=== PATIENT | female | born 1945 | race Caucasian/White ===

== ENCOUNTER → 2020-10-04 15:59 | Outpatient (CLI) | payer MEDICARE, OTHER, SELFPAY | PROVIDERS: PCP Physician Assistant; Visit Provider Physician Assistant | DX: R30.0 Dysuria (principal) | CPT/HCPCS: 87086 ==

== ENCOUNTER → 2020-10-21 08:29 | Outpatient (CLI) | payer MEDICARE, OTHER, SELFPAY ==
[2020-10-21 19:56] LABS: Alanine Aminotransferase 25 IU/L (<35); Albumin 4.2 g/dL (3.5-5.0); Albumin Globulin Ratio 1.5 (1.0-2.8); Alkaline Phosphatase 50 U/L (38-126); Aspartate Aminotransferase 34 IU/L (14-36); BUN Creatinine Ratio 16.9 (6-22); Bilirubin Total 0.6 mg/dL (0.2-1.3); Blood Urea Nitrogen 12 mg/dL (7-17); Calcium 10.1 mg/dL (8.4-10.2); Carbon Dioxide 29 mmol/L (22-32); Chloride 99 mmol/L (98-107); Cholesterol 253 mg/dL (140-199); Estimated Glomerular Filt Rate > 60.0 mL/min (>60); Globulin 2.8 g/dL (1.7-4.1); Glucose 106 mg/dL (80-110); HDL Cholesterol 91 mg/dL (40-60); HEMOLYSIS < 15 (0-50); LDL Cholesterol Calculated 146 mg/dL (<100); Potassium 4.2 mmol/L (3.4-5.1); Sodium 134 mmol/L (137-145); Triglycerides 82 mg/dL (35-150)
[2020-10-21 20:01] LABS: Hemoglobin A1C% w Est Avg Glu 5.2 % (4.0-6.0)
== END ==
PROVIDERS: PCP Physician Assistant; Visit Provider Physician Assistant
DX: E78.00 Pure hypercholesterolemia, unspecified (principal); R73.9 Hyperglycemia, unspecified
CPT/HCPCS: 80053; 80061; 83036

== ENCOUNTER → 2021-04-06 16:30 | Outpatient (CLI) | payer MEDICARE, OTHER, SELFPAY ==
--- NOTE | 2021-04-06 16:31 | DI.MG.S_ITS ---
BILATERAL DIGITAL SCREENING MAMMOGRAM 3D/2D WITH CAD: 04/06/2021 CLINICAL: Routine screening. Comparison is made to exams dated: 01/17/2017 mammogram, 01/17/2016 mammogram, 10/11/2014 mammogram - [facility], and 10/10/2011 mammogram - [facility]. There are scattered fibroglandular elements in both breasts. Current study was also evaluated with a Computer Aided Detection (CAD) system. There are benign vascular calcifications in both breasts. No significant masses, calcifications, or other findings are seen in either breast. There has been no significant interval change. IMPRESSION: BENIGN There is no mammographic evidence of malignancy. A 1 year screening mammogram is recommended. This exam was interpreted at Station ID: [id number]. NOTE: For mammograms, a report in lay terms will be sent to the patient. Approximately 15% of breast malignancies will not be visualized mammographically. In the management of a palpable breast mass, a negative mammogram must not discourage biopsy of a clinically suspicious lesion. Electronically Signed By: Garth cardona/gypsy:04/06/2021 17:09:43 letter sent: Normal Exam ACR BI-RADS Category 2: Benign Finding(s) 3342F
== END ==
PROVIDERS: PCP Physician Assistant; Referring Provider Physician Assistant; Visit Provider Physician Assistant
DX: Z12.31 Encounter for screening mammogram for malignant neoplasm of breast (principal)
CPT/HCPCS: 77063; 77067

== ENCOUNTER → 2021-11-01 09:03 | Outpatient (CLI) | payer MEDICARE, OTHER, SELFPAY ==
[2021-11-01 19:26] LABS: Alanine Aminotransferase 24 IU/L (<35); Albumin 4.5 g/dL (3.5-5.0); Albumin Globulin Ratio 1.5 (1.0-2.8); Alkaline Phosphatase 58 U/L (38-126); Aspartate Aminotransferase 67 IU/L (14-36); BUN Creatinine Ratio 22.7 (6-22); Bilirubin Total 0.7 mg/dL (0.2-1.3); Blood Urea Nitrogen 17 mg/dL (7-17); Calcium 9.6 mg/dL (8.4-10.2); Carbon Dioxide 31 mmol/L (22-32); Chloride 98 mmol/L (98-107); Cholesterol 264 mg/dL (140-199); Estimated Glomerular Filt Rate > 60 mL/min (>60); Globulin 3.1 g/dL (1.7-4.1); Glucose 93 mg/dL (80-110); HDL Cholesterol 101 mg/dL (40-60); HEMOLYSIS 16 (0-50); LDL Cholesterol Calculated 150 mg/dL (<100); Sodium 134 mmol/L (137-145); Total Protein 7.6 g/dL (6.3-8.2); Triglycerides 66 mg/dL (35-150)
== END ==
PROVIDERS: PCP Physician Assistant; Visit Provider Physician Assistant
DX: E78.00 Pure hypercholesterolemia, unspecified (principal); R73.9 Hyperglycemia, unspecified
CPT/HCPCS: 80053; 80061

== ENCOUNTER → 2022-03-12 09:29 | Outpatient (CLI) | payer MEDICARE, OTHER, SELFPAY ==
[2022-03-12 19:14] LABS: Add Manual Diff / Slide Review NO; Basophils Absolute Auto 0 /uL (0-100); Basophils Percent Auto 0.5 % (0-2); Eosinophils Absolute Auto 200 /uL (0-450); Eosinophils Percent Auto 2.8 % (2-4); Hematocrit 37.6 % (36-46); Hemoglobin 13.1 g/dL (12.0-16.0); Lymphocytes Absolute Auto 1800 /uL (1100-4500); Lymphocytes Percent Auto 31.5 % (25-40); Mean Corpuscular HGB Conc 34.7 % (30-36); Mean Corpuscular Hemoglobin 31.3 PG (26-34); Mean Corpuscular Volume 90.1 fL (80-100); Monocytes Absolute Auto 400 /uL (0-900); Monocytes Percent Auto 6.4 % (3-14); Neutrophils Absolute Auto 3300 /uL (1500-7000); Neutrophils Percent Auto 58.8 % (50-75); Platelet Count 260 X10^3/uL (150-400); Red Blood Cell Count 4.18 X10^6/uL (4.0-5.2); Red Cell Distribution Width 12.3 % (11.6-14.8); White Blood Cell Count 5.7 X10^3/uL (4.5-11.0)
[2022-03-12 20:04] LABS: Alanine Aminotransferase 27 IU/L (<35); Albumin 4.4 g/dL (3.5-5.0); Albumin Globulin Ratio 1.4 (1.0-2.8); Alkaline Phosphatase 60 U/L (38-126); Aspartate Aminotransferase 35 IU/L (14-36); BUN Creatinine Ratio 17.6 (6-22); Bilirubin Total 0.8 mg/dL (0.2-1.3); Blood Urea Nitrogen 13 mg/dL (7-17); Calcium 9.4 mg/dL (8.4-10.2); Carbon Dioxide 29 mmol/L (22-32); Chloride 95 mmol/L (98-107); Cholesterol 225 mg/dL (140-199); Estimated Glomerular Filt Rate > 60 mL/min (>60); Globulin 3.1 g/dL (1.7-4.1); Glucose 101 mg/dL (80-110); HDL Cholesterol 82 mg/dL (40-60); HEMOLYSIS < 15 (0-50); LDL Cholesterol Calculated 124 mg/dL (<100); Potassium 4.1 mmol/L (3.4-5.1); Sodium 132 mmol/L (137-145); Total Protein 7.5 g/dL (6.3-8.2); Triglycerides 93 mg/dL (35-150)
[2022-03-12 20:29] LABS: Hep C Virus Ab w/Reflex Quant NEGATIVE s/c (NEGATIVE)
== END ==
PROVIDERS: PCP Physician Assistant; Visit Provider Physician Assistant
DX: E78.00 Pure hypercholesterolemia, unspecified (principal); R30.0 Dysuria; Z79.899 Other long term (current) drug therapy; Z11.59 Encounter for screening for other viral diseases
CPT/HCPCS: 80053; 80061; 85025; 86803

== ENCOUNTER → 2022-06-20 11:35 | Outpatient (CLI) | payer MEDICARE, OTHER, SELFPAY ==
--- NOTE | 2022-06-20 | DI.MG.S_ITS ---
BILATERAL DIGITAL SCREENING MAMMOGRAM 3D/2D WITH CAD: 06/20/2022 CLINICAL: Routine screening. Comparison is made to exams dated: 04/06/2021 mammogram - [facility], 01/17/2017 mammogram, 01/17/2016 mammogram, and 10/11/2014 mammogram - [facility]. There are scattered areas of fibroglandular density in both breasts (category b / 25%-50% glandular tissue). Current study was also evaluated with a Computer Aided Detection (CAD) system. There are benign vascular calcifications in both breasts. No significant masses, calcifications, or other findings are seen in either breast. There has been no significant interval change. IMPRESSION: BENIGN There is no mammographic evidence of malignancy. A 1 year screening mammogram is recommended. Based on the Tyrer Cuzick model (a risk assessment model) the patient's lifetime risk is 2.6% and her 10 year risk is 0.0%. According to the ACR, ACS, and NCCN guidelines, an annual breast MRI exam along with mammogram is recommended if the patient's lifetime risk is 20% or greater. This exam was interpreted at Station ID: [id number]. NOTE: For mammograms, a report in lay terms will be sent to the patient. Approximately 15% of breast malignancies will not be visualized mammographically. In the management of a palpable breast mass, a negative mammogram must not discourage biopsy of a clinically suspicious lesion. Electronically Signed By: Jayleen conde/gypsy:06/20/2022 15:41:32 letter sent: Normal Exam ACR BI-RADS Category 2: Benign Finding(s) 3342F
== END ==
PROVIDERS: PCP Physician Assistant; Referring Provider Physician Assistant; Visit Provider Physician Assistant
DX: Z12.31 Encounter for screening mammogram for malignant neoplasm of breast (principal)
CPT/HCPCS: 77063; 77067

== ENCOUNTER → 2022-09-04 09:24 | Outpatient (CLI) | payer MEDICARE, OTHER, SELFPAY ==
[2022-09-04 19:38] LABS: Alanine Aminotransferase 25 IU/L (<35); Albumin 4.1 g/dL (3.5-5.0); Albumin Globulin Ratio 1.5 (1.0-2.8); Alkaline Phosphatase 59 U/L (38-126); Aspartate Aminotransferase 31 IU/L (14-36); BUN Creatinine Ratio 19.4 (6-22); Bilirubin Total 0.8 mg/dL (0.2-1.3); Blood Urea Nitrogen 14 mg/dL (7-17); Calcium 9.3 mg/dL (8.4-10.2); Carbon Dioxide 29 mmol/L (22-32); Chloride 99 mmol/L (98-107); Cholesterol 226 mg/dL (140-199); Estimated Glomerular Filt Rate > 60 mL/min (>60); Globulin 2.7 g/dL (1.7-4.1); Glucose 104 mg/dL (80-110); HDL Cholesterol 96 mg/dL (40-60); HEMOLYSIS 21 (0-50); LDL Cholesterol Calculated 117 mg/dL (<100); Potassium 4.2 mmol/L (3.4-5.1); Sodium 135 mmol/L (137-145); Total Protein 6.8 g/dL (6.3-8.2); Triglycerides 64 mg/dL (35-150)
== END ==
PROVIDERS: PCP Physician Assistant; Visit Provider Physician Assistant
DX: Z79.899 Other long term (current) drug therapy (principal); E78.00 Pure hypercholesterolemia, unspecified
CPT/HCPCS: 80053; 80061

== ENCOUNTER → 2022-11-20 13:25 | Outpatient (CLI) | payer MEDICARE, OTHER, SELFPAY ==
[2022-11-20 20:14] LABS: C-Reactive Protein Quant < 0.5 mg/dL (<1.0); Uric Acid 5.3 mg/dL (2.5-6.2)
[2022-11-20 20:17] LABS: Rheumatoid Factor < 8.6 IU/mL (<12.0)
[2022-11-20 20:45] LABS: Erythrocyte Sedimentation Rate 5 MM/HR (0-20)
[2022-11-24 20:13] LABS: ANA Screen, IFA Positive (.)
== END ==
PROVIDERS: PCP Physician Assistant; Visit Provider Physician Assistant
DX: M25.541 Pain in joints of right hand (principal); M25.542 Pain in joints of left hand
CPT/HCPCS: 84550; 85651; 86038; 86140; 86430

== ENCOUNTER → 2023-02-28 12:26 | Outpatient (CLI) | payer MEDICARE, OTHER, SELFPAY | PROVIDERS: PCP Physician Assistant; Visit Provider Physician Assistant Medical | DX: R30.0 Dysuria (principal) | CPT/HCPCS: 87077; 87086; 87186 ==

== ENCOUNTER → 2023-07-24 16:11 | Outpatient (CLI) | payer MEDICARE, OTHER, SELFPAY ==
--- NOTE | 2023-07-24 16:15 | DI.MG.S_ITS ---
BILATERAL DIGITAL SCREENING MAMMOGRAM 3D/2D WITH CAD: 07/24/2023 CLINICAL: Routine screening. Comparison is made to exams dated: 06/20/2022 mammogram, 04/06/2021 mammogram - [facility], and 01/17/2017 mammogram - [facility]. There are scattered areas of fibroglandular density in both breasts (category b / 25%-50% glandular tissue). Current study was also evaluated with a Computer Aided Detection (CAD) system. There are benign vascular calcifications in both breasts. No significant masses, calcifications, or other findings are seen in either breast. There has been no significant interval change. IMPRESSION: BENIGN There is no mammographic evidence of malignancy. A 1 year screening mammogram is recommended. Based on the Tyrer Cuzick model (a risk assessment model) the patient's lifetime risk is 2.3% and her 10 year risk is 0.0%. According to the ACR, ACS, and NCCN guidelines, an annual breast MRI exam along with mammogram is recommended if the patient's lifetime risk is 20% or greater. This exam was interpreted at Station ID: [id number]. NOTE: For mammograms, a report in lay terms will be sent to the patient. Approximately 15% of breast malignancies will not be visualized mammographically. In the management of a palpable breast mass, a negative mammogram must not discourage biopsy of a clinically suspicious lesion. Electronically Signed By: William winston/gypsy:07/25/2023 13:54:31 letter sent: Normal Exam ACR BI-RADS Category 2: Benign Finding(s) 3342F
== END ==
LOC: MAMMO 16:13
PROVIDERS: PCP Physician Assistant; Referring Provider Physician Assistant; Visit Provider Physician Assistant
DX: Z12.31 Encounter for screening mammogram for malignant neoplasm of breast (principal); R92.323 Mammographic fibroglandular density, bilateral breasts
CPT/HCPCS: 77063; 77067

== ENCOUNTER → 2023-12-03 10:24 | Outpatient (CLI) | payer MEDICARE, OTHER, SELFPAY ==
[2023-12-03 21:15] LABS: Alanine Aminotransferase 25 IU/L (<35); Albumin 4.1 g/dL (3.5-5.0); Albumin Globulin Ratio 1.6 (1.0-2.8); Alkaline Phosphatase 47 U/L (38-126); Aspartate Aminotransferase 31 IU/L (14-36); BUN Creatinine Ratio 23.8 (6-22); Bilirubin Total 0.8 mg/dL (0.2-1.3); Blood Urea Nitrogen 20 mg/dL (7-17); Calcium 9.6 mg/dL (8.4-10.2); Carbon Dioxide 30 mmol/L (22-32); Chloride 102 mmol/L (98-107); Estimated Glomerular Filt Rate > 60 mL/min (>60); Globulin 2.6 g/dL (1.7-4.1); Glucose 92 mg/dL (80-110); HEMOLYSIS 17 (0-50); Potassium 4.2 mmol/L (3.4-5.1); Sodium 136 mmol/L (137-145); Total Protein 6.7 g/dL (6.3-8.2)
== END ==
PROVIDERS: PCP Physician Assistant; Visit Provider Physician Assistant
DX: I10 Essential (primary) hypertension (principal)
CPT/HCPCS: 80053

== ENCOUNTER → 2024-04-28 09:54 | Outpatient (CLI) | payer MEDICARE, OTHER, SELFPAY ==
[2024-04-28 14:41] LABS: Add Manual Diff / Slide Review NO; Basophils Absolute Auto 0 /uL (0-100); Basophils Percent Auto 0.9 % (0-2); Eosinophils Absolute Auto 100 /uL (0-450); Eosinophils Percent Auto 2.5 % (2-4); Hematocrit 38.6 % (36-46); Hemoglobin 13.4 g/dL (12.0-16.0); Lymphocytes Absolute Auto 2000 /uL (1100-4500); Lymphocytes Percent Auto 44.1 % (25-40); Mean Corpuscular HGB Conc 34.7 % (30-36); Mean Corpuscular Hemoglobin 31.6 PG (26-34); Mean Corpuscular Volume 91.1 fL (80-100); Monocytes Absolute Auto 400 /uL (0-900); Monocytes Percent Auto 8.9 % (3-14); Neutrophils Absolute Auto 2000 /uL (1500-7000); Neutrophils Percent Auto 43.6 % (50-75); Platelet Count 265 X10^3/uL (150-400); Red Blood Cell Count 4.24 X10^6/uL (4.0-5.2); Red Cell Distribution Width 12.5 % (11.6-14.8); White Blood Cell Count 4.6 X10^3/uL (4.5-11.0)
[2024-04-28 14:51] LABS: Alanine Aminotransferase 26 IU/L (<35); Albumin 4.4 g/dL (3.5-5.0); Albumin Globulin Ratio 1.7 (1.0-2.8); Alkaline Phosphatase 72 U/L (38-126); Aspartate Aminotransferase 33 IU/L (14-36); Bilirubin Total 0.7 mg/dL (0.2-1.3); Blood Urea Nitrogen 16 mg/dL (7-17); Carbon Dioxide 29 mmol/L (22-32); Chloride 98 mmol/L (98-107); Cholesterol 226 mg/dL (140-199); Estimated Glomerular Filt Rate > 60 mL/min (>60); Globulin 2.6 g/dL (1.7-4.1); Glucose 98 mg/dL (80-110); HDL Cholesterol 99 mg/dL (40-60); HEMOLYSIS < 15 (0-50); LDL Cholesterol Calculated 112 mg/dL (<100); Potassium 4.2 mmol/L (3.4-5.1); Sodium 133 mmol/L (137-145); Triglycerides 76 mg/dL (35-150)
== END ==
PROVIDERS: PCP Physician Assistant; Visit Provider Physician Assistant
DX: Z79.899 Other long term (current) drug therapy (principal); E78.00 Pure hypercholesterolemia, unspecified
CPT/HCPCS: 80053; 80061; 85025

== ENCOUNTER → 2024-05-01 09:30 | Outpatient (CLI) | payer MEDICARE, OTHER, SELFPAY ==
[2024-05-04 12:38] LABS: Fecal Immunochemical Test Negative (Negative)
== END ==
PROVIDERS: PCP Physician Assistant; Visit Provider Physician Assistant
DX: Z12.11 Encounter for screening for malignant neoplasm of colon (principal)
CPT/HCPCS: 82274

== ENCOUNTER → 2024-06-04 12:05 | Outpatient (CLI) | payer MEDICARE, OTHER, SELFPAY ==
[2024-06-04 20:36] LABS: Alanine Aminotransferase 24 IU/L (<35); Albumin 4.4 g/dL (3.5-5.0); Albumin Globulin Ratio 1.7 (1.0-2.8); Alkaline Phosphatase 53 U/L (38-126); Aspartate Aminotransferase 30 IU/L (14-36); Bilirubin Total 0.7 mg/dL (0.2-1.3); Blood Urea Nitrogen 23 mg/dL (7-17); Calcium 9.8 mg/dL (8.4-10.2); Carbon Dioxide 30 mmol/L (22-32); Chloride 96 mmol/L (98-107); Estimated Glomerular Filt Rate > 60 mL/min (>60); Globulin 2.6 g/dL (1.7-4.1); Glucose 110 mg/dL (80-110); HEMOLYSIS < 15 (0-50); Potassium 4.1 mmol/L (3.4-5.1); Sodium 132 mmol/L (137-145)
== END ==
PROVIDERS: PCP Physician Assistant; Visit Provider Physician Assistant
DX: R21 Rash and other nonspecific skin eruption (principal); E87.1 Hypo-osmolality and hyponatremia
CPT/HCPCS: 80053; 87070; 87075; 87205

== ENCOUNTER → 2024-06-29 11:59 | Outpatient (CLI) | payer MEDICARE, OTHER, SELFPAY ==
[2024-06-29 20:16] LABS: Alanine Aminotransferase 27 IU/L (<35); Albumin 4.2 g/dL (3.5-5.0); Albumin Globulin Ratio 1.6 (1.0-2.8); Alkaline Phosphatase 59 U/L (38-126); Aspartate Aminotransferase 74 IU/L (14-36); BUN Creatinine Ratio 27.4 (6-22); Bilirubin Total 0.5 mg/dL (0.2-1.3); Blood Urea Nitrogen 23 mg/dL (7-17); Calcium 9.3 mg/dL (8.4-10.2); Carbon Dioxide 25 mmol/L (22-32); Chloride 103 mmol/L (98-107); Estimated Glomerular Filt Rate > 60 mL/min (>60); Globulin 2.6 g/dL (1.7-4.1); Glucose 96 mg/dL (80-110); HEMOLYSIS 27 (0-50); Magnesium 1.7 mg/dL (1.6-2.3); Potassium 4.3 mmol/L (3.4-5.1); Sodium 134 mmol/L (137-145); Total Protein 6.8 g/dL (6.3-8.2)
== END ==
PROVIDERS: PCP Physician Assistant; Visit Provider Physician Assistant
DX: E87.1 Hypo-osmolality and hyponatremia (principal)
CPT/HCPCS: 80053; 83735

== ENCOUNTER → 2024-08-07 08:42 | Outpatient (CLI) | payer MEDICARE, OTHER, SELFPAY ==
--- NOTE | 2024-08-07 08:44 | DI.MG.S_ITS ---
MM screening mammo BI: 08/07/2024. BI-RADS: 1 CLINICAL: 79-year old female for bilateral screening mammogram. Tyrer-Cuzick lifetime risk of 1.4%. No personal or first-degree family history of breast cancer. PRIOR EXAMS 07/24/2023, 06/20/2022, 04/06/2021. MAMMOGRAPHY TECHNIQUE: 2D and 3D (tomosynthesis) digital mammographic views obtained, with additional images as needed for full coverage. Current study was also evaluated with a Computer Aided Detection (CAD) system. DENSITY B. There are scattered areas of fibroglandular density. MAMMOGRAPHY FINDINGS Bilateral: Typically-benign vascular calcifications noted. No suspicious mass, asymmetry, microcalcification, or other abnormality seen. IMPRESSION: * No evidence of malignancy. RECOMMENDATIONS Bilateral * Annual screening mammography. OVERALL ASSESSMENT CATEGORY BI-RADS-1: Negative. The [employer] recommends annual screening mammography beginning at age 40 for women with average risk of breast cancer. ELECTRONICALLY SIGNED: Eloina Blum M.D. on 08/07/2024 at 02:39:07 PM PT Interpreting Station ID: [id number]
--- NOTE | 2024-08-07 08:44 | DI.US.S_ITS ---
PROCEDURE: US ABDOMEN LIMITED INDICATIONS: RIGHT UPPER QUADRANT PAIN AND ELEVATED LIVER FUNCTION TESTS TECHNIQUE: Real-time scanning was performed of the abdominal and retroperitoneal organs, with image documentation. COMPARISON: None. FINDINGS: Liver: Liver is normal in size and homogeneous in echotexture. Gallbladder: Small gallbladder wall polyp 3 mm. No cholelithiasis. No gallbladder wall thickening. Biliary ducts: Intrahepatic bile ducts are non-dilated. Extrahepatic bile duct caliber measures 2 mm. Normal is 6-7 mm or less in diameter, or 10 mm or less post-cholecystectomy. Pancreas: In the pancreatic tail, there are 2 subcentimeter hyperechoic foci which are subtle and may reflect in fact reflect artifact. Miscellaneous: No free abdominal fluid. IMPRESSION: Small gallbladder wall polyp, 3 mm. No cholelithiasis or acute findings. Incidental hyperechoic subcentimeter nodules in the pancreatic tail may reflect focal fat or artifact. Nevertheless, consider follow-up CT with contrast pancreatic protocol to assess for underlying mass lesion Approved by: Mat Champion M.D. on 08/07/2024 at 14:17
--- NOTE | 2024-08-07 08:44 | DI.RAD.S_ITS ---
PROCEDURE: XR DEXA AXIAL SKELETON INDICATIONS: bone density screening COMPARISON: None. FINDINGS: Lumbar Spine: Bone mineral density 0.767 g/cm2, T score -2.5. Left Femoral Neck: Bone mineral density 0.550 g/cm2, T score -2.7. Left Hip: Bone mineral density 0.638 g/cm2, T score -2.5. Fracture Risk Calculation (when applicable): 10-year fracture risk of a major osteoporotic fracture 18 percent and of a hip fracture 6.8 percent. (T score greater or equal to -1.0 to: NORMAL) (T score from -1.1 to -2.4: OSTEOPENIA) (T score less than or equal to -2.5: OSTEOPOROSIS) IMPRESSION: Osteoporosis--- recommend repeat DEXA in 2 years or less for reassessment of response to treatment. Follow-up guidelines as follows: Osteoporosis: Consider a repeat DEXA and Vertebral Fracture Assessment (VFA) exam in 2 years or sooner if medically necessary, to reassess this patient's status. Osteopenia: Consider a repeat DEXA in 2-3 years to reassess this patient's status, or if there is a new clinical indication. Normal: Consider a repeat DEXA in 5 years or sooner, or if there is a new clinical indication. All treatment decisions require clinical judgment and consideration of individual patient factors, including patient preferences, comorbidities, previous drug use, risk factors not captured in the FRAX model (e.g., frailty, falls, vitamin D deficiency, increased bone turnover, interval significant decline in bone density ) and possible under- or over-estimation of fracture risk by FRAX. In addition, the NOF Guide recommends that FDA-approved medical therapies be considered in postmenopausal women and men age >= 50 years with a: * Hip or vertebral (clinical or morphometric) fracture * T-score of <=-2.5 at the spine or hip * Ten-year fracture probability by FRAX of >= 3% for hip fracture or >=20% for major osteoporotic fracture. Dictated by: Cameron Cloud M.D. on 08/07/2024 at 18:39 Approved by: Cameron Cloud M.D. on 08/07/2024 at 18:41
== END ==
PROVIDERS: PCP Physician Assistant; Referring Provider Physician Assistant; Visit Provider Physician Assistant
DX: Z12.31 Encounter for screening mammogram for malignant neoplasm of breast (principal); K82.4 Cholesterolosis of gallbladder; R10.11 Right upper quadrant pain; R74.8 Abnormal levels of other serum enzymes; M81.0 Age-related osteoporosis without current pathological fracture; Z78.0 Asymptomatic menopausal state
CPT/HCPCS: 76705; 77063; 77067; 77080

== ENCOUNTER → 2024-08-14 09:03 | Outpatient (CLI) | payer MEDICARE, OTHER, SELFPAY ==
--- NOTE | 2024-08-14 09:04 | DI.CT.S_ITS ---
PROCEDURE: CT ABDOMEN PANCREATIC PROTOCOL INDICATIONS: f/u to abnormal 08/07/24 abd US: assess for underlying mass TECHNIQUE: Both before and after the administration of intravenous contrast, 3 mm thick pancreatic-phase images acquired from the diaphragm to the iliac crests. 3 mm thick coronal and sagittal reformats were performed. For radiation dose reduction, the following was used: automated exposure control, adjustment of mA and/or kV according to patient size. COMPARISON: [facility], , US ABDOMEN LIMITED, 08/07/2024, 9:50. FINDINGS: Image quality: Diagnostic. Lower chest: Unremarkable. ABDOMEN: Pancreas: No solid mass. No ductal dilation. No adjacent retroperitoneal soft tissue abnormality is found. Liver: No solid mass. Gallbladder: No radiopaque gallstones or wall thickening. Biliary ducts: No biliary dilation. Adrenal Glands: No nodules. Spleen: Size is within normal limits. Kidneys and Ureters: No hydronephrosis. No solid mass. No complex renal cystic lesion which requires follow up. A water density cyst with peripheral calcifications and no soft tissue component is noted at the posterior cortex of the left kidney. This measures up to 3.4 cm craniocaudad and approximately 1.6 by 1.8 cm in axial dimensions. Stomach and Bowel: Normal colonic caliber, without significant wall thickening. Peritoneum: No abnormal intraperitoneal fluid. No free air. Ventral Wall: No hernia. Abdominal Nodes: No retroperitoneal or mesenteric adenopathy by size criteria. Vessels: Aorta and inferior vena cava are normal in size. Bones: No aggressive osseous abnormality. IMPRESSION: 1. The pancreatic parenchyma appears normal throughout. Etiology of the small areas of increased echotexture seen at the pancreatic parenchyma anteriorly and posteriorly is not identified and may have represented artifact. No follow-up recommended. 2. Water density cyst with peripheral calcifications and no soft tissue component incidentally noted at the posterior cortex of the left kidney. Dictated by: Ivan Phipps M.D. on 08/14/2024 at 15:47 Approved by: Ivan Phipps M.D. on 08/14/2024 at 15:56
[2024-08-14 09:30] LABS: Alanine Aminotransferase 29 IU/L (<35); Albumin 4.6 g/dL (3.5-5.0); Albumin Globulin Ratio 1.7 (1.0-2.8); Alkaline Phosphatase 50 U/L (38-126); Aspartate Aminotransferase 45 IU/L (14-36); BUN Creatinine Ratio 23.5 (6-22); Bilirubin Total 0.7 mg/dL (0.2-1.3); Blood Urea Nitrogen 19 mg/dL (7-17); Carbon Dioxide 28 mmol/L (22-32); Chloride 101 mmol/L (98-107); Estimated Glomerular Filt Rate > 60 mL/min (>60); Globulin 2.7 g/dL (1.7-4.1); Glucose 110 mg/dL (80-110); HEMOLYSIS < 15 (0-50); Lipase 174 U/L (23-300); Potassium 4.4 mmol/L (3.4-5.1); Sodium 137 mmol/L (137-145); Total Protein 7.3 g/dL (6.3-8.2)
== END ==
PROVIDERS: PCP Physician Assistant; Referring Provider Physician Assistant; Visit Provider Physician Assistant
DX: N28.1 Cyst of kidney, acquired (principal); N28.89 Other specified disorders of kidney and ureter; R93.5 Abnormal findings on diagnostic imaging of other abdominal regions, including retroperitoneum; R10.11 Right upper quadrant pain; R74.8 Abnormal levels of other serum enzymes
CPT/HCPCS: 36415; 74170; 80053; 83690; Q9967

== ENCOUNTER → 2025-01-14 14:19 | Outpatient (CLI) | payer MEDICARE, OTHER, SELFPAY | PROVIDERS: PCP Physician Assistant; Visit Provider Physician Assistant Medical | DX: R50.9 Fever, unspecified (principal) | CPT/HCPCS: 87086 ==

== ENCOUNTER 2025-01-20 16:03 | Emergency (ER) | payer MEDICARE, OTHER, SELFPAY ==
[2025-01-20 16:35] VITALS: BP 166/76; PULSE 85; RESP 18; TEMP 36.6; O2SAT 96; BMI 21.0
[2025-01-20 17:34] VITALS: TEMP 36.6
--- NOTE | 2025-01-20 18:18 | ED.URI ---
HPI - URI/Sore Throat <Anali Quiles PA-C - Last Filed: 01/20/25 19:32> General Chief Complaint: Upper Respiratory Symptoms Stated Complaint: sinus infection PCP ref Time Seen by Provider: 01/20/25 17:53 Source: patient Mode of arrival: Ambulatory History of Present Illness HPI Narrative: Rebecca Silvestre is a pleasant 79-year-old female with a past medical history of hypertension who presents to the emergency department for concerns of sinus infection with low-grade fevers and intermittent headaches x2 weeks. Patient describes having what she believes was low-grade fevers over last 2 weeks with temperatures ranging from 102-99 however after checking her temperature in the ER with her home thermometer and our thermometer she realized that her thermometer at home may not be accurate. However she has been experiencing intermittent headaches around her ears, in her forehead and sometimes in the back of her head and she has soreness on her bilateral anterior cervical lymph node region. States that despite taking occasional ibuprofen or Tylenol, about half a pill, symptoms have not resolved. Four days ago her primary care doctor started her on amoxicillin and she states that her symptoms have been improving since then. Due to the duration of her symptoms, family encouraged her to come to the ER for further evaluation. She denies chest pain, shortness of breath, visual disturbance, nausea, vomiting, sore throat, rhinorrhea, cough, abdominal pain, nausea, vomiting, diarrhea. No difficulty with neck movements. No photophobia. She has an outpatient maxillary sinus x-ray scheduled for Saturday and a PCP visit scheduled for Saturday. Related Data Home Medications ?Medication ?Instructions ?Recorded ?Confirmed ketoconazole 2 % topical cream applic topical DAILY 08/04/24 01/26/25 Previous Rx's ?Medication ?Instructions ?Recorded estradiol 0.01% (0.1 mg/gram) 1 g vaginal 3XW #42.5 grams 08/04/24 vaginal cream hydrochlorothiazide 25 mg tablet 12.5 mg (1/2 x 25 mg) PO DAILY #90 08/17/24 tabs metoprolol tartrate 25 mg tablet 12.5 mg (1/2 x 25 mg) PO BID #90 08/17/24 tabs mupirocin 2 % topical ointment 1 applic topical BID #22 grams 12/10/24 fluticasone propionate 50 1 spray intranasal BID sinusitis 01/14/25 mcg/actuation nasal #16 grams spray,suspension (Flonase Allergy Relief) prednisone 50 mg tablet 50 mg PO DAILY #30 tabs 01/31/25 Allergies Allergy/AdvReac Type Severity Reaction Status Date / Time codeine AdvReac Mild Verified 01/31/25 13:37 acetaminophen (From AdvReac Unknown Verified 01/31/25 13:37 Darvocet-N) propoxyphene (From AdvReac Unknown Verified 01/31/25 13:37 Darvocet-N) Review of Systems <Anali Quiles PA-C - Last Filed: 01/20/25 19:32> Review of Systems ROS Unobtainable: All systems reviewed & are unremarkable except as noted in HPI and below Patient History <Anali Quiles PA-C - Last Filed: 01/20/25 19:32> Medical History Atrophic vulvovaginitis Urinary incontinence without sensory awareness Lichen planus Postmenopausal atrophic vaginitis History of postmenopausal bleeding History of anxiety History of herpes simplex infection Actinic keratosis History of allergic rhinitis Rosacea Osteoporosis Essential hypertension Personal history of kidney stones Social History Smoking Status: Never smoker Smoking Status: Never smoker Alcohol type: wine Exam <Anali Quiles PA-C - Last Filed: 01/20/25 19:32> Narrative Exam Narrative: GENERAL: 79 year old patient appears stated age. Well-developed patient, in no acute distress. HEAD: Atraumatic. Normocephalic. EYES: PERRL. Extraocular motions intact. No scleral icterus. No injection or drainage. ENT: Clear ear canals and normal TMs bilaterally, no mastoid tenderness bilaterally Nose without bleeding, purulent drainage. Throat without erythema, tonsillar hypertrophy or exudate. Airway patent. NECK: Trachea midline. Cervical ROM intact. No cervical tenderness. Negative meningeal signs. Slight reported tenderness with the palpation of right cervical lymph chain. CARDIOVASCULAR: Regular rate and rhythm. RESPIRATORY: ?Nonlabored respirations. ?Speaking in clear, full sentences. ?Clear to auscultation. Breath sounds equal bilaterally. No wheezes, rales, or rhonchi. ? NEURO: AOx3. ?Clear speech. ?Moves all 4 extremities appropriately. SKIN: No rash or erythema of visible areas Initial Vital Signs Initial Vital Signs: Vital Signs Temperature 98 F 01/20/25 16:35 Pulse Rate 85 01/20/25 16:35 Respiratory Rate 18 01/20/25 16:35 Blood Pressure 166/76 H 01/20/25 16:35 Pulse Oximetry 96 01/20/25 16:35 Oxygen Delivery Method Room Air 01/20/25 16:35 <Emil Orozco MD - Last Filed: 02/01/25 15:22> Initial Vital Signs Initial Vital Signs: Vital Signs Temperature 98 F 01/20/25 16:35 Pulse Rate 85 01/20/25 16:35 Respiratory Rate 18 01/20/25 16:35 Blood Pressure 166/76 H 01/20/25 16:35 Pulse Oximetry 96 01/20/25 16:35 Oxygen Delivery Method Room Air 01/20/25 16:35 Course <Anali Quiles PA-C - Last Filed: 01/20/25 19:32> Orders Ordered: Discontinued Medications Acetaminophen (Acetaminophen 325 Mg Tablet) 650 mg PO NOW ONE Stop: 01/20/25 18:17 Last Admin: 01/20/25 18:25 Dose: 650 mg Documented By: ALEXANDREA Amoxicillin/Clavulanate Potassium (Amoxicillin/Clav 875/125 Mg) 1 tab PO NOW ONE Stop: 01/20/25 18:17 Last Admin: 01/20/25 18:25 Dose: 1 tab Documented By: ALEXANDREA Ibuprofen (Ibuprofen 400 Mg Tablet) 400 mg PO NOW ONE Stop: 01/20/25 18:17 Last Admin: 01/20/25 18:25 Dose: 400 mg Documented By: ALEXANDREA Vital Signs Vital signs: Vital Signs - 8 hr 01/20/25 16:35 01/20/25 17:34 Temperature 98 F 97.8 F Pulse Rate 85 Respiratory Rate 18 Blood Pressure 166/76 H Pulse Oximetry 96 Oxygen Delivery Method Room Air <Emil Orozco MD - Last Filed: 02/01/25 15:22> Orders Ordered: Discontinued Medications Acetaminophen (Acetaminophen 325 Mg Tablet) 650 mg PO NOW ONE Stop: 01/20/25 18:17 Last Admin: 01/20/25 18:25 Dose: 650 mg Documented By: ALEXANDREA Amoxicillin/Clavulanate Potassium (Amoxicillin/Clav 875/125 Mg) 1 tab PO NOW ONE Stop: 01/20/25 18:17 Last Admin: 01/20/25 18:25 Dose: 1 tab Documented By: ALEXANDREA Ibuprofen (Ibuprofen 400 Mg Tablet) 400 mg PO NOW ONE Stop: 01/20/25 18:17 Last Admin: 01/20/25 18:25 Dose: 400 mg Documented By: ALEXANDREA Vital Signs Vital signs: Vital Signs - 8 hr 01/20/25 16:35 01/20/25 17:34 Temperature 98 F 97.8 F Pulse Rate 85 Respiratory Rate 18 Blood Pressure 166/76 H Pulse Oximetry 96 Oxygen Delivery Method Room Air MDM - URI/Sore Throat <Anali Quiles PA-C - Last Filed: 01/20/25 19:32> Medical Records Attestation: I reviewed the patient's medical records. MDM Narrative Medical decision making narrative: 79-year-old female with a past medical history of hypertension who presents to the emergency department for concerns of sinus infection with low-grade fevers and intermittent headaches x2 weeks. Differential diagnosis includes but is not limited to sinusitis, acute otitis media, mastoiditis, hypertension, tension headache, viral syndrome, etc. On exam the patient is in no acute distress, nontoxic-appearing, all vital signs within normal limits. Patient afebrile, she used her home thermometer in the ED which measured 99, so we repeated her temperature 2nd time which was again normal, came to conclusion her home thermometer is likely not reading accurately. Physical exam is overall reassuring with no neurologic focal deficits, negative meningeal signs, clear lung auscultation, normal ear exam. Duration of symptoms concerning for possible sinusitis, patient's symptoms have actually been improving with amoxicillin over the last few days however given concern for bacterial sinusitis we will transition to amoxicillin clavulanic acid for coverage of staph, Klebsiella, M cat, Bacteroides. Patient has appointment scheduled with her PCP on Saturday for follow up. Also discussed with the patient that she has been under dosing both ibuprofen and Tylenol, taking only about half a pill, so encouraged recommended dosing to help with any pain. Patient was treated with ibuprofen, Tylenol, Augmentin in the ER. We discussed follow up with PCP and strict ER return precautions. Patient has been verbalized understanding of all information agreeable with the plan. She is ambulatory and stable for discharge home. Discharge Plan Departure Patient Disposition: Home Clinical Impression: Sinusitis, acute Qualifiers: Sinusitis location: unspecified location Recurrence: non-recurrent Qualified Code(s): J01.90 - Acute sinusitis, unspecified Headache Qualifiers: Headache type: unspecified Headache chronicity pattern: episodic headache Intractability: not intractable Qualified Code(s): R51.9 - Headache, unspecified Instructions: DI for Sinusitis Activity Restrictions/Additional Instructions: Dear Ms. Silvestre, Thank you for coming to the emergency department. Today you were evaluated for low-grade fevers and headache you have been experiencing over the last few weeks. Your history and physical exam are consistent with a sinus infection. I am glad that the symptoms are improving on the amoxicillin, however I would like you to stop taking this and start taking the amoxicillin clavulanic acid which is a similar but slightly stronger antibiotic. It can also be helpful to take intranasal Flonase and jasa-iak-esbzhso antihistamines such as Claritin to help with symptoms. It is very important to continue hydrating, and use ibuprofen and Tylenol together or alternating as needed for pain. Please follow up with your primary care doctor as scheduled. Please return to the emergency room if you develop any new or worsening symptoms such as severe pain, changes in vision, neck rigidity, persistent vomiting or any other concerns. Please take Ibuprofen (Motrin/Advil) or Acetaminophen (Tylenol) for pain. These are available over the counter. You may take Ibuprofen 400 mg every 6 hours with food for pain. You may also take Acetaminophen 650 mg every 4-6 hours for pain. Do not exceed 3000 mg of Tylenol a day as this can cause liver damage. Do not drink alcohol with either of these medications. Please follow up with your primary care doctor within the next 2-3 days for ER follow-up. (If you do not have a PCP you can call [phone]. ?to schedule an appointment with an [facility] Primary Care Provider) IF YOU DEVELOP ANY NEW OR WORSENING SYMPTOMS, RETURN TO THE ER! Please read the attached instructions, they highlight more specific treatments and interventions for you at home. Thank you for letting me participate in your care, Anali Quiles PA-C Prescriptions: No Action prednisone 50 mg tablet 50 mg PO DAILY Qty: 30 0RF ketoconazole 2 % cream topical DAILY estradiol 0.01 % (0.1 mg/gram) cream 1 g vaginal 3XW Qty: 42.5 1RF mupirocin 2 % ointment 1 applic topical BID Qty: 22 1RF fluticasone propionate [Flonase Allergy Relief] 50 mcg/actuation spray,suspension 1 spray intranasal BID Qty: 16 0RF Rx Instructions: administer into each nostril Adacel(Tdap Adolesn/Adult)(PF) 2 Lf-(2.5-5-3-5 mcg)-5Lf/0.5 mL suspension 0.5 ml IM ONCE Qty: 0.5 0RF metoprolol tartrate 25 mg tablet 12.5 mg PO BID Qty: 90 1RF hydrochlorothiazide 25 mg tablet 12.5 mg PO DAILY Qty: 90 1RF Referrals: Tanya Dyson PA-C [Primary Care Provider, Medical] Stand Alone Forms: Patient Portal/API ED Sign-out <Emil Orozco MD - Last Filed: 02/01/25 15:22> Cosign ED Attending Cosignature Attestation: I was present in the department and available for consultation at the time the patient was seen
[2025-01-20] MEDS: ACETAMINOPHEN 325 MG TABLET 650 MG PO (18:25)
[2025-01-20] MEDS: IBUPROFEN 400 MG TABLET PO (18:25)
[2025-01-20] MEDS: AMOXICILLIN/CLAV 875/125 MG 1 TAB PO (18:25)
== END 2025-01-20 18:51 | disposition home or self-care (01) ==
PROVIDERS: Emergency Provider Physician Assistant; PCP Physician Assistant
DX: J01.90 Acute sinusitis, unspecified (principal); R51.9 Headache, unspecified
CPT/HCPCS: 99283

== ENCOUNTER → 2025-01-22 11:23 | Outpatient (CLI) | payer MEDICARE, OTHER, SELFPAY ==
[2025-01-22 18:40] LABS: Add Manual Diff / Slide Review NO; Hematocrit 33.2 % (36-46); Hemoglobin 11.7 g/dL (12.0-16.0); Lymphocytes Absolute Auto 1000 /uL (1100-4500); Mean Corpuscular HGB Conc 35.3 % (30-36); Mean Corpuscular Hemoglobin 31.1 PG (26-34); Mean Corpuscular Volume 88.1 fL (80-100); Platelet Count 412 X10^3/uL (150-400)
[2025-01-22 19:02] LABS: Cholesterol 153 mg/dL (140-199); HDL Cholesterol 55 mg/dL (40-60); Triglycerides 64 mg/dL (35-150)
[2025-01-22 19:06] LABS: Alanine Aminotransferase 33 IU/L (<35); Albumin 3.7 g/dL (3.5-5.0); Albumin Globulin Ratio 1.4 (1.0-2.8); Alkaline Phosphatase 78 U/L (38-126); Blood Urea Nitrogen 14 mg/dL (7-17); Calcium 9.6 mg/dL (8.4-10.2); Carbon Dioxide 27 mmol/L (22-32); Chloride 96 mmol/L (98-107); Estimated Glomerular Filt Rate > 60 mL/min (>60); Globulin 2.7 g/dL (1.7-4.1); Glucose 107 mg/dL (70-99); HEMOLYSIS 24 (0-50); Potassium 4.7 mmol/L (3.4-5.1); Sodium 131 mmol/L (137-145); Total Protein 6.4 g/dL (6.3-8.2)
== END ==
PROVIDERS: Physician Assistant Medical; PCP Physician Assistant; Visit Provider Physician Assistant
DX: R50.9 Fever, unspecified (principal); Z13.6 Encounter for screening for cardiovascular disorders; R74.8 Abnormal levels of other serum enzymes; E87.1 Hypo-osmolality and hyponatremia; E78.00 Pure hypercholesterolemia, unspecified
CPT/HCPCS: 80053; 80061; 85025

== ENCOUNTER → 2025-01-27 08:30 | Outpatient (CLI) | payer MEDICARE, OTHER, SELFPAY | LOC: LAB 13:59 | PROVIDERS: PCP Physician Assistant; Visit Provider Physician Assistant | DX: Z12.11 Encounter for screening for malignant neoplasm of colon (principal); D64.9 Anemia, unspecified | CPT/HCPCS: 82274 ==

== ENCOUNTER 2025-01-31 13:23 | Emergency (ER) | payer MEDICARE, OTHER, SELFPAY ==
[2025-01-31 13:37] VITALS: BP 176/82; PULSE 72; RESP 16; TEMP 36.5; O2SAT 97; BMI 21.0
[2025-01-31 14:05] LABS: Add Manual Diff / Slide Review NO; Hematocrit 36.0 % (36-46); Hemoglobin 12.3 g/dL (12.0-16.0); Lymphocytes Absolute Auto 1100 /uL (1100-4500); Mean Corpuscular HGB Conc 34.2 % (30-36); Mean Corpuscular Hemoglobin 30.1 PG (26-34); Mean Corpuscular Volume 87.9 fL (80-100); Platelet Count 449 X10^3/uL (150-400)
--- NOTE | 2025-01-31 14:08 | EKG_ITS ---
[address] [address] Test Date: 2025-01-31 Pat Name: Rebecca Silvestre Department: [facility] Room: Gender: Female [employer]: MAEVE : 1945 Requested By: Order Number: [id number] Reading MD: Srinivas Dominguez Measurements Intervals Dawn Rate: 75 P: 65 AL: 202 QRS: 39 QRSD: 78 T: 54 QT: 380 QTc: 424 Interpretive Statements Sinus rhythm with premature supraventricular complexes Cannot rule out Anterior infarct , age undetermined Electronically Signed On 02-03-2025 8:04:36 PDT by Srinivas Dominguez
[2025-01-31 14:10] LABS: INR 1.1 (0.9-1.3); Prothrombin Time 12.9 SECONDS (9.4-12.5)
[2025-01-31 14:13] LABS: PTT Partial Thromboplastin Tim 33 SECONDS (25.1-36.5)
[2025-01-31 14:17] LABS: Alanine Aminotransferase 43 IU/L (<35); Albumin 4.0 g/dL (3.5-5.0); Albumin Globulin Ratio 1.1 (1.0-2.8); Alkaline Phosphatase 83 U/L (38-126); Blood Urea Nitrogen 12 mg/dL (7-17); Calcium 9.9 mg/dL (8.4-10.2); Carbon Dioxide 27 mmol/L (22-32); Chloride 95 mmol/L (98-107); Creatine Kinase 30 U/L (30-135); Estimated Glomerular Filt Rate > 60 mL/min (>60); Globulin 3.5 g/dL (1.7-4.1); Glucose 130 mg/dL (70-99); HEMOLYSIS < 15 (0-50); Magnesium 1.7 mg/dL (1.6-2.3); Potassium 3.8 mmol/L (3.4-5.1); Sodium 132 mmol/L (137-145); Total Protein 7.5 g/dL (6.3-8.2)
[2025-01-31 14:26] VITALS: PULSE 78; O2SAT 99
[2025-01-31 14:29] LABS: NT-proBNP (BNP-Adult 18+) 446 pg/mL (<450); Troponin I < 0.012 ng/mL (0.01-0.034)
[2025-01-31 14:30] VITALS: BP 147/74; PULSE 77; RESP 20; O2SAT 99
--- NOTE | 2025-01-31 14:31 | ED.HA ---
HPI - Headache General Chief Complaint: Headache Stated Complaint: headaches sent by pcp Time Seen by Provider: 01/31/25 13:49 Mode of arrival: Ambulatory History of Present Illness HPI Narrative: Patient is an 80-year-old female history of hypertension presenting today with ongoing headache. She reports that she has had headache ongoing for about 1 month. She has had some upper respiratory symptoms other family members have had some symptoms as well. She has been treated for sinusitis twice this month. She is tender in the back lower part of her head and also in the front. She was sent over by PCP to rule out temporal arteritis. She really isn't complaining too badly of temporal pain. No nausea no vomiting some photosensitivity. No fever no chills. Related Data Home Medications ?Medication ?Instructions ?Recorded ?Confirmed ketoconazole 2 % topical cream applic topical DAILY 08/04/24 01/26/25 Previous Rx's ?Medication ?Instructions ?Recorded estradiol 0.01% (0.1 mg/gram) 1 g vaginal 3XW #42.5 grams 08/04/24 vaginal cream hydrochlorothiazide 25 mg tablet 12.5 mg (1/2 x 25 mg) PO DAILY #90 08/17/24 tabs metoprolol tartrate 25 mg tablet 12.5 mg (1/2 x 25 mg) PO BID #90 08/17/24 tabs mupirocin 2 % topical ointment 1 applic topical BID #22 grams 12/10/24 fluticasone propionate 50 1 spray intranasal BID sinusitis 01/14/25 mcg/actuation nasal #16 grams spray,suspension (Flonase Allergy Relief) prednisone 50 mg tablet 50 mg PO DAILY #30 tabs 01/31/25 Allergies Allergy/AdvReac Type Severity Reaction Status Date / Time codeine AdvReac Mild Verified 01/31/25 13:37 acetaminophen (From AdvReac Unknown Verified 01/31/25 13:37 Darvocet-N) propoxyphene (From AdvReac Unknown Verified 01/31/25 13:37 Darvocet-N) Patient History Medical History Atrophic vulvovaginitis Urinary incontinence without sensory awareness Lichen planus Postmenopausal atrophic vaginitis History of postmenopausal bleeding History of anxiety History of herpes simplex infection Actinic keratosis History of allergic rhinitis Rosacea Osteoporosis Essential hypertension Personal history of kidney stones Smoking Status: Never smoker Alcohol type: wine Exam Initial Vital Signs Initial Vital Signs: Vital Signs Temperature 97.7 F 01/31/25 13:37 Pulse Rate 72 01/31/25 13:37 Respiratory Rate 16 01/31/25 13:37 Blood Pressure 176/82 H 01/31/25 13:37 Pulse Oximetry 97 01/31/25 13:37 Oxygen Delivery Method Room Air 01/31/25 13:37 GENERAL: Alert pleasant well-appearing 80-year-old female and in no acute distress. HEENT: Head atraumatic mildly tender bilateral temporal artery,EOMI, pupils reactive, face symmetric, moist mucous membranes CARDIOVASCULAR: Regular rate and rhythm without murmurs, rubs or gallops. RESPIRATORY: Breath sounds equal bilaterally, no wheezes rales or rhonchi. ABDOMEN: Soft, nontender. Normoactive bowel sounds all 4 quadrants. No guarding or rebound. EXTREMITIES: Normal range of motion, no clubbing or edema. Neurovascularly intact NEUROLOGICAL: Alert and oriented x4.Normal gait and speech. Cranial nerves II through XII grossly intact. SKIN: Warm, dry, no laceration, no petechiae, no rashes or lesions. Course Orders Ordered: ED Orders 01/31/25 13:47 EKG-12 Lead Stat 01/31/25 13:56 CRP [C-Reactive Protein Quant] Stat Complete Blood Count AUTO DIFF Stat Comprehensive Metabolic Panel Stat ESR [Erythrocyte Sedimentation Rate] Stat Magnesium Stat NT-proBNP (BNP-Adult 18+) Stat PTT Partial Thromboplastin Yifan Stat Prothrombin Time INR Stat Troponin & CK Cardiac Panel Stat 01/31/25 14:22 COVID19 -Nasal RAPID Stat 01/31/25 14:40 CT head/brain wo con Stat 01/31/25 15:01 CT angio head and neck Stat Discontinued Medications Prednisone (Prednisone 20 Mg Tablet) 60 mg PO NOW ONE Stop: 01/31/25 15:47 Last Admin: 01/31/25 15:52 Dose: 60 mg Vital Signs Vital signs: Vital Signs - 8 hr 01/31/25 13:37 01/31/25 14:26 01/31/25 14:30 Temperature 97.7 F Pulse Rate 72 78 77 Respiratory Rate 16 20 Blood Pressure 176/82 H Pulse Oximetry 97 99 99 Oxygen Delivery Method Room Air 01/31/25 14:30 01/31/25 15:00 01/31/25 15:52 Temperature Pulse Rate 80 81 Respiratory Rate 20 18 Blood Pressure 147/74 H Pulse Oximetry 99 97 Oxygen Delivery Method 01/31/25 15:52 Temperature Pulse Rate Respiratory Rate Blood Pressure 167/81 H Pulse Oximetry Oxygen Delivery Method MDM - Headache Lab Data 01/31/25 13:56 01/31/25 13:56 Labs: Lab Results 01/31/25 01/31/25 Range/Units 13:56 14:22 WBC 9.4 (4.5-11.0) X10^3/uL RBC 4.09 (4.0-5.2) X10^6/uL Hgb 12.3 (12.0-16.0) g/dL Hct 36.0 (36-46) % MCV 87.9 (80-100) fL MCH 30.1 (26-34) PG MCHC 34.2 (30-36) % RDW 11.9 (11.6-14.8) % Plt Count 449 H (150-400) X10^3/uL Neut % (Auto) 79.0 H (50-75) % Lymph % (Auto) 11.2 L (25-40) % [place]ander % (Auto) 6.9 (3-14) % Eos % (Auto) 2.2 (2-4) % Baso % (Auto) 0.7 (0-2) % Neut # (Auto) 7400 H (4586-2744) /uL Lymph # (Auto) 1100 (1216-5125) /uL Lander # (Auto) 600 (0-900) /uL Eos # (Auto) 200 (0-450) /uL Baso # (Auto) 100 (0-100) /uL ESR 54 H (0-20) MM/HR PT 12.9 H (9.4-12.5) SECONDS INR 1.1 (0.9-1.3) APTT 33 (25.1-36.5) SECONDS Sodium 132 L (137-145) mmol/L Potassium 3.8 (3.4-5.1) mmol/L Chloride 95 L (98-107) mmol/L Carbon Dioxide 27 (22-32) mmol/L BUN 12 (7-17) mg/dL Creatinine 0.65 (0.52-1.04) mg/dL Estimated GFR > 60 (>60) mL/min BUN/Creatinine Ratio 18.5 (6-22) Glucose 130 H (70-99) mg/dL Calcium 9.9 (8.4-10.2) mg/dL Magnesium 1.7 (1.6-2.3) mg/dL Total Bilirubin 0.4 (0.2-1.3) mg/dL AST 41 H (14-36) IU/L ALT 43 H (<35) IU/L Alkaline Phosphatase 83 (38-126) U/L Total Creatine Kinase 30 (30-135) U/L Troponin I < 0.012 (0.01-0.034) ng/mL C-Reactive Protein 6.0 H (<1.0) mg/dL NT-Pro-B Natriuret Pep 446 (<450) pg/mL Total Protein 7.5 (6.3-8.2) g/dL Albumin 4.0 (3.5-5.0) g/dL Globulin 3.5 (1.7-4.1) g/dL Albumin/Globulin Ratio 1.1 (1.0-2.8) SARS-CoV-2 (PCR) Negative (Negative) Imaging Data CT scan - head: Radiologist's Impression: PROCEDURE: CT HEAD/BRAIN WO CON INDICATIONS: headaches x 1 month TECHNIQUE: Noncontrast 4.5 mm thick angled axial sections acquired from the foramen magnum to the vertex, with coronal and sagittal reformats. For radiation dose reduction, the following was used: automated exposure control, adjustment of mA and/or kV according to patient size. COMPARISON: None. FINDINGS: Image quality: Diagnostic. CSF spaces: Basal cisterns are patent. No extra-axial fluid collections. The ventricles are symmetric in size and shape. Brain: No intracranial bleeds or mass effect. There is cerebral volume loss, with resultant ventricular and sulcal prominence. There are periventricular and deep white matter chronic small vessel ischemic changes. There is intracranial internal carotid artery atherosclerosis. Skull and face: Calvarium and visualized facial bones appear intact, without suspicious lesions. Sinuses: Visualized sinuses and mastoids are clear. IMPRESSION: No acute intracranial pathology. Dictated by: Rocky Medina M.D. on 01/31/2025 at 15:06 CTA - brain/neck: Radiologist's Impression: PROCEDURE: CT ANGIO HEAD AND NECK INDICATIONS: dejesus, scientology pain, sent for ? giant cell arteritis TECHNIQUE: After the administration of intravenous contrast, 1 mm thick sections acquired from the aortic arch through the [place] of [place]. 3-dimensional dszzgmz-sppdtnisa-uwfqkihyfp (MIP) and/or volume rendering reformats were acquired of the central intracranial vasculature and neck separately. For radiation dose reduction, the following was used: automated exposure control, adjustment of mA and/or kV according to patient size. COMPARISON: None. FINDINGS: Image quality: Diagnostic. Cerebral CT Angiogram: Internal carotid arteries: No acute findings. Intracranial ICA are patent with no significant stenosis. No occlusion. No aneurysm. Anterior cerebral arteries: Unremarkable. No significant stenosis. No occlusion. No aneurysm. Middle cerebral arteries: Unremarkable. No significant stenosis. No occlusion. No aneurysm. Posterior cerebral arteries: Unremarkable. No significant stenosis. No occlusion. No aneurysm. Basilar artery: Unremarkable. No significant stenosis. No occlusion. No aneurysm. Vertebral arteries: Unremarkable as visualized. Dural venous sinuses: Unremarkable given phase of enhancement. Other: Arterial phase appearance of the brain parenchyma is unremarkable. Neck CT Angiogram: Internal carotid arteries: Unremarkable. No significant stenosis. No dissection or occlusion. Common carotid arteries: Unremarkable. No significant stenosis. No dissection or occlusion. External carotid arteries: Unremarkable. No occlusion. Vertebral arteries: Unremarkable. No significant stenosis. No dissection or occlusion. Aortic Arch and Mediastinum: Partially visualized aortic arch unremarkable without evidence of aneurysm. Origins of the great vessels unremarkable. Other: Arterial phase soft tissues of the neck and chest are unremarkable. IMPRESSION: 1. No significant intracranial arterial abnormality is seen. 2. No significant abnormality is seen within the arteries of the neck. Any quantitative measurements of stenosis were performed using NASCET criteria. Dictated by: Rocky Medina M.D. on 01/31/2025 at 15:40 ECG Data Attestation: I personally reviewed and interpreted this ECG as follows: Prior ECG tracings: available for review Interpretation: Normal sinus rhythm rate 75 TX interval 202 QRS 70 QTC 424 wave noted lead 2 3 and AVF, no to compare no significant ST elevation or depression MDM Narrative Medical decision making narrative: [facility] CC: Headache Complicating co-morbidities: Hypertension Data collected from: Patient Medical records reviewed: 01/14/25 PCP visit intermittent fevers since the 10th ongoing head and neck pain, started amoxicillin 01/20/25-ED visit headache ongoing for 2 weeks intermittent fevers, put on Augmentin 01/22/25 blood draw, sodium 131, hemoglobin 11.7 hematocrit 33.2 01/26/25 PCP hyponatremia anemia has repeat blood work Differential considered: Viral meningitis bacterial meningitis temporal arteritis brain mass intracranial hemorrhage Exam documented above, pertinent findings include: Alert very well-appearing 80-year-old female NIH 0 Lab Test results independently reviewed as above. Pertinent findings: CBC shows WBC of 9.4 hemoglobin 12.3 hematocrit 36.0 improvement from prior platelets 449 CMP shows persistent hyponatremia at sodium 132, stable from prior other electrolytes within normal limits no [place] creatinine 0.6 glucose 130 AST 41 ALT 43 Troponin negative ESR 54 CRP 6.0 Independently reviewed EKG as above Sinus rhythm Q-waves noted inferiorly no obvious ST-T Imaging studies independently reviewed: CT head no contrast intracranial hemorrhage CT angio no large vessel occlusion no abnormal artery Consultations: none Treatments: Prednisone 60 mg Re-evaluations: At this time patient not wanting anything for pain she appears well nontoxic Discussion: Patient 80-year-old female presents today with ongoing headache. She initially started with low-grade fever she has been on 2 courses of antibiotics for a sinus infection. She has no leukocytosis today mild hyponatremia is stable no significant anemia. She does have elevated ESR CRP mild tenderness over temporal arteries possible giant cell temporal arteritis. Can have outpatient biopsy. I do not think she needs a lumbar puncture at this time, she has had headache ongoing for at least 1 month. She is not septic no leukocytosis or fever here. Discharge Plan Departure Patient Disposition: Home Clinical Impression: Temporal giant cell arteritis Instructions: DI for Headache Activity Restrictions/Additional Instructions: *You have been diagnosed with temporal arteritis--presumed *What to do: At this time we are presuming that this is what you have. You need a biopsy with the [facility] to confirm this diagnosis. For now you are being treated with prednisone. *Continue to take medications as directed Prednisone 50 mg once a day for a month Dr. Knight's office will then taper it down *Follow up with your primary care provider in 2-3 days or call [phone] Call [facility], Dr. Dawson to schedule artery biopsy *Return to ER if you should have increasing headache nausea vomiting weak or any new, worsening or concerning symptoms Prescriptions: New prednisone 50 mg tablet 50 mg PO DAILY Qty: 30 0RF No Action ketoconazole 2 % cream topical DAILY estradiol 0.01 % (0.1 mg/gram) cream 1 g vaginal 3XW Qty: 42.5 1RF mupirocin 2 % ointment 1 applic topical BID Qty: 22 1RF fluticasone propionate [Flonase Allergy Relief] 50 mcg/actuation spray,suspension 1 spray intranasal BID Qty: 16 0RF Rx Instructions: administer into each nostril Adacel(Tdap Adolesn/Adult)(PF) 2 Lf-(2.5-5-3-5 mcg)-5Lf/0.5 mL suspension 0.5 ml IM ONCE Qty: 0.5 0RF metoprolol tartrate 25 mg tablet 12.5 mg PO BID Qty: 90 1RF hydrochlorothiazide 25 mg tablet 12.5 mg PO DAILY Qty: 90 1RF Referrals: [facility] [Provider Group] Tanya Dyson PA-C [Primary Care Provider, Medical] Stand Alone Forms: Patient Portal/API
--- NOTE | 2025-01-31 14:40 | DI.CT.S_ITS ---
PROCEDURE: CT HEAD/BRAIN WO CON INDICATIONS: headaches x 1 month TECHNIQUE: Noncontrast 4.5 mm thick angled axial sections acquired from the foramen magnum to the vertex, with coronal and sagittal reformats. For radiation dose reduction, the following was used: automated exposure control, adjustment of mA and/or kV according to patient size. COMPARISON: None. FINDINGS: Image quality: Diagnostic. CSF spaces: Basal cisterns are patent. No extra-axial fluid collections. The ventricles are symmetric in size and shape. Brain: No intracranial bleeds or mass effect. There is cerebral volume loss, with resultant ventricular and sulcal prominence. There are periventricular and deep white matter chronic small vessel ischemic changes. There is intracranial internal carotid artery atherosclerosis. Skull and face: Calvarium and visualized facial bones appear intact, without suspicious lesions. Sinuses: Visualized sinuses and mastoids are clear. IMPRESSION: No acute intracranial pathology. Dictated by: Rocky Medina M.D. on 01/31/2025 at 15:06 Approved by: Rocky Medina M.D. on 01/31/2025 at 15:07
[2025-01-31 14:45] LABS: COVID19 -Nasal RAPID Negative (Negative)
[2025-01-31 15:00] VITALS: PULSE 80; RESP 20; O2SAT 99
--- NOTE | 2025-01-31 15:01 | DI.CT.S_ITS ---
PROCEDURE: CT ANGIO HEAD AND NECK INDICATIONS: djeesus, episcopalian pain, sent for ? giant cell arteritis TECHNIQUE: After the administration of intravenous contrast, 1 mm thick sections acquired from the aortic arch through the [place] of [place]. 3-dimensional irzhvhh-hstyppzjk-fohhgaimmw (MIP) and/or volume rendering reformats were acquired of the central intracranial vasculature and neck separately. For radiation dose reduction, the following was used: automated exposure control, adjustment of mA and/or kV according to patient size. COMPARISON: None. FINDINGS: Image quality: Diagnostic. Cerebral CT Angiogram: Internal carotid arteries: No acute findings. Intracranial ICA are patent with no significant stenosis. No occlusion. No aneurysm. Anterior cerebral arteries: Unremarkable. No significant stenosis. No occlusion. No aneurysm. Middle cerebral arteries: Unremarkable. No significant stenosis. No occlusion. No aneurysm. Posterior cerebral arteries: Unremarkable. No significant stenosis. No occlusion. No aneurysm. Basilar artery: Unremarkable. No significant stenosis. No occlusion. No aneurysm. Vertebral arteries: Unremarkable as visualized. Dural venous sinuses: Unremarkable given phase of enhancement. Other: Arterial phase appearance of the brain parenchyma is unremarkable. Neck CT Angiogram: Internal carotid arteries: Unremarkable. No significant stenosis. No dissection or occlusion. Common carotid arteries: Unremarkable. No significant stenosis. No dissection or occlusion. External carotid arteries: Unremarkable. No occlusion. Vertebral arteries: Unremarkable. No significant stenosis. No dissection or occlusion. Aortic Arch and Mediastinum: Partially visualized aortic arch unremarkable without evidence of aneurysm. Origins of the great vessels unremarkable. Other: Arterial phase soft tissues of the neck and chest are unremarkable. IMPRESSION: 1. No significant intracranial arterial abnormality is seen. 2. No significant abnormality is seen within the arteries of the neck. Any quantitative measurements of stenosis were performed using NASCET criteria. Dictated by: Rocky Medina M.D. on 01/31/2025 at 15:40 Approved by: Rocky Medina M.D. on 01/31/2025 at 15:41
[2025-01-31 15:52] VITALS: BP 167/81; PULSE 81; RESP 18; O2SAT 97
== END 2025-01-31 16:06 | disposition home or self-care (01) ==
PROVIDERS: Emergency Provider Emergency Medicine; PCP Physician Assistant
DX: M31.6 Other giant cell arteritis (principal)
CPT/HCPCS: 36415; 70450; 70496; 70498; 80053; 82550; 83735; 83880; 84484; 85025; 85610; 85651; 85730; 86140; 87635; 93005; 99284; Q9967

== ENCOUNTER → 2025-02-26 12:01 | Outpatient (CLI) | payer MEDICARE, OTHER, SELFPAY ==
[2025-02-26 19:28] LABS: Add Manual Diff / Slide Review NO; Hematocrit 37.7 % (36-46); Hemoglobin 12.6 g/dL (12.0-16.0); Lymphocytes Absolute Auto 900 /uL (1100-4500); Mean Corpuscular HGB Conc 33.4 % (30-36); Mean Corpuscular Hemoglobin 29.7 PG (26-34); Mean Corpuscular Volume 88.9 fL (80-100); Platelet Count 293 X10^3/uL (150-400)
[2025-02-26 19:32] LABS: Alanine Aminotransferase 34 IU/L (<35); Albumin 3.9 g/dL (3.5-5.0); Albumin Globulin Ratio 1.5 (1.0-2.8); Alkaline Phosphatase 57 U/L (38-126); Blood Urea Nitrogen 23 mg/dL (7-17); Calcium 10.5 mg/dL (8.4-10.2); Carbon Dioxide 30 mmol/L (22-32); Chloride 98 mmol/L (98-107); Estimated Glomerular Filt Rate > 60 mL/min (>60); Globulin 2.6 g/dL (1.7-4.1); Glucose 106 mg/dL (70-99); HEMOLYSIS < 15 (0-50); Potassium 4.2 mmol/L (3.4-5.1); Sodium 133 mmol/L (137-145); Total Protein 6.5 g/dL (6.3-8.2)
[2025-02-26 19:33] LABS: Appearance Urine UA CLEAR; Bilirubin Urine UA NEGATIVE (NEGATIVE); Color Urine UA YELLOW; Glucose Urine UA NEGATIVE (Negative); HEMOLYSIS < 15 (0-50); Iron 80 ug/dL (37-170); Ketones Urine UA NEGATIVE (NEGATIVE); Leukocyte Esterase Urine UA NEGATIVE (NEGATIVE); Nitrite Urine UA NEGATIVE (Negative); Occult Blood Urine UA TRACE-INTACT (Negative); Protein Urine UA NEGATIVE (Negative); Specific Gravity Urine UA 1.010 (1.000-1.035); Urobilinogen Urine UA 0.2 E.U./dL (0.2)
[2025-02-26 19:34] LABS: pH Urine UA 7.0 (4.5-8.0)
[2025-02-26 19:43] LABS: Culture Indicated Urine Cult Not Indicated
[2025-02-26 19:45] LABS: Percent Iron Saturation 33 % (15-50); Total Iron Binding Capacity 246 ug/dL (265-497); Transferrin 225 mg/dL (206-381)
[2025-02-26 20:23] LABS: Vitamin B12 839 pg/mL (239-931)
[2025-02-26 20:59] LABS: Vitamin D 25 Hydroxy (D3) 84.0 ng/mL (30.0-100.0)
== END ==
PROVIDERS: PCP Physician Assistant; Visit Provider Family Medicine
DX: M81.0 Age-related osteoporosis without current pathological fracture (principal); D64.9 Anemia, unspecified; R30.0 Dysuria; M31.6 Other giant cell arteritis; E87.1 Hypo-osmolality and hyponatremia
CPT/HCPCS: 80053; 81001; 82306; 82607; 83540; 83550; 85025; 85651

== ENCOUNTER → 2025-03-02 11:13 | Outpatient (CLI) | payer MEDICARE, OTHER, SELFPAY | PROVIDERS: PCP Physician Assistant; Visit Provider Physician Assistant | DX: R35.0 Frequency of micturition (principal) | CPT/HCPCS: 87086 ==

== ENCOUNTER → 2025-03-16 13:07 | Outpatient (CLI) | payer MEDICARE, OTHER, SELFPAY ==
[2025-03-16 19:05] LABS: Hematocrit 35.2 % (36-46); Hemoglobin 12.3 g/dL (12.0-16.0); Mean Corpuscular HGB Conc 34.9 % (30-36); Mean Corpuscular Hemoglobin 30.5 PG (26-34); Mean Corpuscular Volume 87.4 fL (80-100); Platelet Count 285 X10^3/uL (150-400)
[2025-03-16 19:06] LABS: Add Manual Diff / Slide Review YES
[2025-03-16 19:12] LABS: Alanine Aminotransferase 28 IU/L (<35); Albumin 3.5 g/dL (3.5-5.0); Albumin Globulin Ratio 1.4 (1.0-2.8); Alkaline Phosphatase 51 U/L (38-126); Blood Urea Nitrogen 26 mg/dL (7-17); Calcium 10.3 mg/dL (8.4-10.2); Carbon Dioxide 27 mmol/L (22-32); Chloride 99 mmol/L (98-107); Estimated Glomerular Filt Rate 50 mL/min (>60); Globulin 2.5 g/dL (1.7-4.1); Glucose 136 mg/dL (70-99); HEMOLYSIS 15 (0-50); Potassium 4.3 mmol/L (3.4-5.1); Sodium 132 mmol/L (137-145); Total Protein 6.0 g/dL (6.3-8.2)
[2025-03-16 19:20] LABS: Band Neutrophils Percent 1.0 % (3-7); Lymphocytes Percent Manual 5.0 % (25-45); Monocytes Percent Manual 2.0 % (2-11); Neutrophils Absolute Manual 9300 /uL (3000-5900); RBC Morphology Normal Morphology; Segmented Neutrophils Percent 92.0 % (38-70); Total Cells Counted 100
[2025-03-16 20:03] LABS: Vitamin B12 718 pg/mL (239-931)
[2025-03-16 20:27] LABS: Hemoglobin A1C% w Est Avg Glu 6.1 % (4.0-6.0)
== END ==
PROVIDERS: PCP Physician Assistant; Visit Provider Physician Assistant
DX: K59.03 Drug induced constipation (principal); R79.89 Other specified abnormal findings of blood chemistry; K13.0 Diseases of lips; E87.1 Hypo-osmolality and hyponatremia; D64.9 Anemia, unspecified; Z79.899 Other long term (current) drug therapy
CPT/HCPCS: 80053; 82607; 83036; 85007; 85025

== ENCOUNTER → 2025-04-26 13:03 | Outpatient (CLI) | payer MEDICARE, OTHER, SELFPAY ==
[2025-04-26 19:32] LABS: Blood Urea Nitrogen 21 mg/dL (7-17); Calcium 9.7 mg/dL (8.4-10.2); Carbon Dioxide 28 mmol/L (22-32); Chloride 100 mmol/L (98-107); Estimated Glomerular Filt Rate > 60 mL/min (>60); Glucose 137 mg/dL (70-99); HEMOLYSIS 16 (0-50); Potassium 4.4 mmol/L (3.4-5.1); Sodium 134 mmol/L (137-145)
[2025-04-26 19:39] LABS: Hemoglobin A1C% w Est Avg Glu 6.0 % (4.0-6.0)
== END ==
PROVIDERS: PCP Physician Assistant; Visit Provider Family Medicine
DX: R73.03 Prediabetes (principal); M31.6 Other giant cell arteritis; I10 Essential (primary) hypertension
CPT/HCPCS: 80048; 83036; 85651